=== PATIENT | male | born 1980 | race African-American/Black ===

== ENCOUNTER 2017-01-01 11:40 | Emergency (ER) | payer SELFPAY ==
[~2017-01-01] VITALS: Ht 180.3 cm; Wt 81.0 kg
[2017-01-01 11:43] VITALS: BP 136/72
[2017-01-01] MEDS ORDERED: TETANUS, DIPHTHERIA, PERTUSSIS VAC/PF 0.5ML (>7YR OLD) IM ONE (12:15)
== END 2017-01-01 14:07 | disposition home or self-care (01) ==
LOC: ER 13:58
DX: S21.159A Open bite of unspecified front wall of thorax without penetration into thoracic cavity, initial encounter (principal); Y04.1XXA Assault by human bite, initial encounter; Y93.9 Activity, unspecified; Y92.488 Other paved roadways as the place of occurrence of the external cause
CPT/HCPCS: 90471; 90715; 99283